=== PATIENT | male | born 1955 | race Caucasian/White ===

== ENCOUNTER → 2018-12-25 | Outpatient (CLI) | payer MEDICARE ==
--- NOTE | 2018-12-25 09:08 | CTL ---
EXAMINATION TYPE: CT Low Dose Lung DATE OF EXAM ORDERED: 12/25/2018 HISTORY: 63-year-old male Personal hx of tobacco use . Lung cancer screening CT DLP: [address] CTDI: 1.64 mGy Automated exposure control for dose reduction was used. SCREENING VISIT: Baseline COMPARISON: None TECHNIQUE: Low dose computed tomography scan was performed through the chest at 1 mm thick sections a nd reconstructed images in the coronal and sagittal plane. Additional coronal MIP reconstructions per formed. CT DIAGNOSTIC QUALITY: Satisfactory FINDINGS: Heart normal size without pericardial effusion. Coronary vessel calcifications are present. Aorta normal caliber with mild atherosclerotic arch calcifications and conventional arch vessel branc dewayne anatomy. No thoracic lymphadenopathy by CT size criteria. Mild bilateral gynecomastia. Mild centrilobular emphysema with biapical pleural-parenchymal scarring. Mild diffuse bronchial wall thickening. There is strandy bibasilar atelectasis or scarring right base and inferior lingula. 3 mm peripheral left lower lobe pulmonary nodule axial image 175. 5 mm right middle lobe pulmonary nodule, axial image 200. 5 mm right upper lobe pulmonary nodule, axial image 121. No consolidation or pleural effusion. Tiny hiatal hernia. Bilateral nonobstructive nephrolithiasis measuring up to 4 mm on either side. Bones: Dextroconvex curvature of the thoracic spine. IMPRESSION: 1. BI-RADS 2 - benign; a few scattered pulmonary nodules measuring up to 5 mm on baseline screening. 2. COPD with mild emphysema. 3. Tiny hiatal hernia and bilateral nephrolithiasis. RECOMMENDATION: 1. Continue annual low-dose lung cancer screening CT. 2. Smoking cessation. FOLLOW UP CT CHEST RECOMMENDATION: [address] LUNG RAD: Lung-Rad 2 Benign Appearance or Behavior
== END | disposition home or self-care (01) ==
LOC: RADCTMAIN 05:31
PROVIDERS: ATTEND Physician Assistant
DX: Z12.2 Encounter for screening for malignant neoplasm of respiratory organs (principal); J43.9 Emphysema, unspecified; F17.210 Nicotine dependence, cigarettes, uncomplicated

== ENCOUNTER → 2020-03-06 | Outpatient (CLI) | payer MEDICARE ==
--- NOTE | 2020-03-06 08:39 | US ---
EXAMINATION TYPE: US duplex aorta DATE OF EXAM: 03/06/2020 COMPARISON: NONE CLINICAL HISTORY: Z13.6 Encounter screening for cardiovascular disorders. EXAM MEASUREMENTS: Abdominal Aorta: Proximal: 2.4 x 2.4 cm Mid: 2.2 x 2.1 cm Distal: 1.7 x 1.6 cm Bifurcation: 1.0 cm 0.9 cm No evidence of AAA, mild atherosclerotic changes. Grayscale and color Doppler imaging performed IMPRESSION: No abdominal aortic aneurysm
== END | disposition home or self-care (01) ==
LOC: RADUSWWP 08:07
PROVIDERS: ATTEND Family Medicine
DX: Z13.6 Encounter for screening for cardiovascular disorders (principal)
CPT/HCPCS: 93979

== ENCOUNTER → 2020-06-01 | Outpatient (CLI) | payer MEDICARE ==
--- NOTE | 2020-06-01 13:10 | CTL ---
EXAMINATION TYPE: CT Low Dose Lung DATE OF EXAM ORDERED: 06/01/2020 HISTORY: 65-year-old male Personal history of tobacco use. Lung cancer screening CT DLP: [address] CTDI: 1.87 mGy Automated exposure control for dose reduction was used. SCREENING VISIT: 17 months after baseline screening COMPARISON: 12/25/2018 TECHNIQUE: Low dose computed tomography scan was performed through the chest at 1 mm thick sections a nd reconstructed in the sagittal and coronal plane. Additional coronal MIP reconstructions were gener ated. CT DIAGNOSTIC QUALITY: Satisfactory FINDINGS: Heart normal size with trace anterior pericardial fluid. Mild scattered three-vessel coronary calcifi cations are present. Aorta normal caliber with conventional arch vessel branching anatomy and mild atherosclerotic arch ca lcifications. Redemonstrated prominent biapical pleural parenchymal scarring. Mild centrilobular emphysema. Mild di ffuse bronchial wall thickening. Scattered pulmonary nodules, axial image 117, 170, and 193 measuring up to 5 mm remain unchanged. A 6 mm calcified granuloma medial basilar right lower lobe, axial image 263 is new but benign. Otherwise, no new pulmonary nodules are seen. Tiny hiatal hernia. Visualized upper abdomen redemonstrates left-sided nephrolithiasis measuring up t o 5 mm. Bones: No osseous destructive process. IMPRESSION: 1. LungRADS 2 - benign;. Evidence of prior granulomatous disease as well as stable. Pulmonary nodules measuring up to 5 mm. 2. COPD with mild emphysema. 3. Left-sided nephrolithiasis. RECOMMENDATION: 1. Continue annual low-dose lung cancer screening CT. 2. Smoking cessation. CT LUNG RAD AND CT CHEST RECOMMENDATION: Lung-Rad 2 Benign Appearance or Behavior: Continue annual sc reening with LDCT in 12 months.
== END | disposition home or self-care (01) ==
LOC: RADCTMAIN 11:58
PROVIDERS: ATTEND Nurse Practitioner Family
DX: Z12.2 Encounter for screening for malignant neoplasm of respiratory organs (principal); J43.9 Emphysema, unspecified; F17.210 Nicotine dependence, cigarettes, uncomplicated

== ENCOUNTER → 2020-12-22 | Outpatient (CLI) | payer MEDICARE ==
--- NOTE | 2020-12-23 13:37 | P.ARTDOP ---
Arterial Doppler LOWER EXTREMITY ARTERIAL DOPPLER: DATE OF SERVICE: 12/22/2020 Reason for study: Restless leg syndrome. Doppler waveforms: Multiphasic throughout bilaterally. However, the dorsalis pedis on the right could not be seen.. Pulse volume recording: []. Pressure gradients: None. Ankle-brachial indices: Greater than 1 bilaterally. Toe brachial indices: 0.84 on the right, 0.73 on the left Impression: Normal study except absence of a dorsalis pedis on the right which is unlikely to be of physiologic significance. Clinical correlation re commended.
== END | disposition home or self-care (01) ==
LOC: RADUSWWP 12:34
PROVIDERS: ATTEND Family Medicine
DX: I73.9 Peripheral vascular disease, unspecified (principal)
CPT/HCPCS: 93922

== ENCOUNTER 2024-11-26 10:56 | Inpatient (IN) | payer MEDICARE ==
[2024-11-26 12:18] LABS: Appearance,Urine Clear (Clear); Bilirubin,Urine Negative (Negative); Blood,Urine Negative (Negative); Color,Urine Colorless; Glucose,Urine (UA) Negative (Negative); Ketones,Urine Negative (Negative); Leukocyte Esterase,Urine Negative (Negative); Nitrite,Urine Negative (Negative); PH, Urine 5.5 (5.0-8.0); Protein,Urine Negative (Negative); Specific Gravity,Urine 1.005 (1.001-1.035); Urobilinogen,Urine <2.0 mg/dL (<2.0)
[2024-11-26 12:19] LABS: Basophils # (A) 0.05 10*3/uL (0.00-0.10); Basophils % (A) 0.4 %; Eosinophils # (A) 0.16 10*3/uL (0.04-0.35); Eosinophils % (A) 1.4 %; HCT 46.2 % (39.6-50.0); HGB 16.2 g/dL (13.0-17.0); Lymphocytes # (A) 3.25 10*3/uL (0.90-5.00); MCH 30.9 pg (27.0-32.0); MCHC 35.1 g/dL (32.0-37.0); MCV 88.2 fL (80.0-97.0); Mean Platelet Volume 9.3 fL (9.5-12.2); Monocytes # (A) 0.84 10*3/uL (0.20-1.00); Monocytes % (A) 7.2 %; Neutrophils # (A) 7.21 10*3/uL (1.80-7.70); Neutrophils % (A) 62.2 %; Platelet Count 298 10*3/uL (140-440); RBC 5.24 10*6/uL (4.40-5.60); RDW 11.9 % (11.5-14.5)
[2024-11-26 12:34] LABS: ALT 41 U/L (4-49); AST 42 U/L (17-59); African American GFR (CKD) 62 (>60 ml/min/1.73 sqM); Albumin 4.7 g/dL (3.5-5.0); Alkaline Phosphatase 92 U/L (38-126); Anion Gap 13 mmol/L; Blood Urea Nitrogen 18 mg/dL (9-20); Calcium 9.5 mg/dL (8.4-10.2); Carbon Dioxide 22 mmol/L (22-30); Chloride 103 mmol/L (98-107); Glucose 102 mg/dL (74-99); Magnesium 2.3 mg/dL (1.6-2.3); Non-African American GFR(CKD) 54 (>60 ml/min/1.73 sqM); Potassium 3.9 mmol/L (3.5-5.1); Sodium 138 mmol/L (137-145); Total Bilirubin 1.2 mg/dL (0.2-1.3); Total Protein 7.3 g/dL (6.3-8.2)
--- NOTE | 2024-11-26 13:00 | ED ---
General Adult HPI - General Source: patient, RN notes reviewed, old records reviewed Mode of arrival: ambulatory Limitations: no limitations <Noah Garrison - Last Filed: 11/26/24 15:23> <Wilbur Camargo - Last Filed: 11/26/24 18:00> - General Chief complaint: Psychiatric Symptoms Stated complaint: Mental Health Eval. Time Seen by Provider: 11/26/24 11:00 - History of Present Illness Initial comments: This is a 69-year-old male who presents to the emergency department stating that he is more depressed lately he has not been taking his medicine for 2 weeks. Patient states he has not been eating or going out of the house much. Patient states he is only getting 4 to 6 hours of sleep. Patient states he continues to smoke as well. Patient's family is concerned and want him to come to the emergency department to be evaluated. Patient denies any fever chills or cough or Patient denies chest pain patient has abdominal pain patient has nausea vomiting. Patient states that she is feeling depressed but is not suicidal or homicidal. (Noah Garrison) - Related Data Home Medications Medication Instructions Recorded Confirmed ARIPiprazole [Abilify] 15 mg PO HS 11/26/24 11/26/24 Albuterol Sulfate [Albuterol 2 puff INHALATION RT-Q6H PRN 11/26/24 11/26/24 Sulfate Hfa] Atorvastatin [Lipitor] 40 mg PO HS 11/26/24 11/26/24 Cetirizine HCl [Zyrtec] 10 mg PO DAILY 11/26/24 11/26/24 Pantoprazole Sodium [Protonix] 40 mg PO DAILY PRN 11/26/24 11/26/24 lamoTRIgine [LaMICtal] 200 mg PO DAILY 11/26/24 11/26/24 rOPINIRole HCL [Requip] 0.25 mg PO HS PRN 11/26/24 11/26/24 Allergies Allergy/AdvReac Type Severity Reaction Status Date / Time No Known Allergies Allergy Verified 11/26/24 15:20 Review of Systems ROS Other: All systems not noted in ROS Statement are negative. <Noah Garrison - Last Filed: 11/26/24 15:23> ROS Other: All systems not noted in ROS Statement are negative. <Wilbur Camargo - Last Filed: 11/26/24 18:00> ROS Statement: Those systems with pertinent positive or pertinent negative responses have been documented in the HPI. Past Medical History Past Medical History: COPD History of Any Multi-Drug Resistant Organisms: None Reported Past Surgical History: No Surgical Hx Reported Past Psychological History: No Psychological Hx Reported Smoking Status: Current every day smoker Past Alcohol Use History: None Reported Past Drug Use History: None Reported <Noah Garrison - Last Filed: 11/26/24 15:23> General Exam Limitations: no limitations <Noah Garrison - Last Filed: 11/26/24 15:23> - General Exam Comments Initial Comments: GENERAL: Patient is well-developed and well-nourished. Patient is nontoxic and well- hydrated and is in mild distress. ENT: Neck is soft and supple. No significant lymphadenopathy is noted. Oropharynx is clear. Moist mucous membranes. Neck has full range of motion without eliciting any pain. EYES: The sclera were anicteric and conjunctiva were pink and moist. Extraocular movements were intact and pupils were equal round and reactive to light. Eyelids were unremarkable. PULMONARY: Unlabored respirations. Good breath sounds bilaterally. No audible rales rhonchi or wheezing was noted. CARDIOVASCULAR: There is a regular rate and rhythm without any murmurs gallops or rubs. ABDOMEN: Soft and nontender with normal bowel sounds. SKIN: Skin is clear with no lesions or rashes and otherwise unremarkable. NEUROLOGIC: Patient is alert and oriented x3. Cranial nerves II through XII are grossly intact. Motor and sensory are also intact. Normal speech, volume and content. Symmetrical smile. MUSCULOSKELETAL: Normal extremities with adequate strength and full range of motion. No lower extremity swelling or edema. No calf tenderness. LYMPHATICS: No significant lymphadenopathy is noted PSYCHIATRIC: States he has not been sleeping good he does not go out of the house and he is just feeling severely depressed. Patient states he has not been taking any of his medicines for 2 weeks (Noah Garrison) Course Vital Signs 11/26/24 11/26/24 10:57 14:20 Temperature 97.6 F Pulse Rate 74 80 Respiratory 18 18 Rate Blood Pressure 131/80 122/70 O2 Sat by Pulse 94 L 95 Oximetry Medical Decision Making - Lab Data Result diagrams: 11/26/24 12:11 11/26/24 12:11 <Noah Garrison - Last Filed: 11/26/24 15:23> - Lab Data Result diagrams: 11/26/24 12:11 11/26/24 12:11 <Wilbur Camargo - Last Filed: 11/26/24 18:00> - Medical Decision Making Was pt. sent in by a medical professional or institution (, ADRY, RESPIRATORY THERAPIST ASSISTANT, urgent care, hospital, or custodial...) When possible be specific @ -[No] Did you speak to anyone other than the patient for history (EMS, parent, family, police, friend...)? What history was obtained from this source @ -[No] Did you review nursing and triage notes (agree or disagree)? Why? @ -[I reviewed and agree with nursing and triage notes] Were old charts reviewed (outside hosp., previous admission, EMS record, old EKG, old radiological studies, urgent care reports/EKG's, custodial records)? Report findings @ -[No old charts were reviewed] Differential Diagnosis? @ -Differential Mental Health Depression, anxiety, bipolar, psychosis, schizophrenia, borderline personality, situational depression, adjustment disorder, behavioral disorder, brain tumor, malingering, substance abuse, encephalopathy, medication reaction, dementia, hypothyroidism, degenerative neurologic disorder, lupus.... This is not meant to be all-inclusive list EKG interpreted by me (3pts min.). @ -[As above] X-rays interpreted by me (1pt min.). @ -[None done] CT interpreted by me (1pt min.). @ -[None done] U/S interpreted by me (1pt. min.). @ -[None done] What testing was considered but not performed or refused? (CT, X-rays, U/S, labs)? Why? @ -[None] What meds were considered but not given or refused? Why? @ -[None] Did you discuss the management of the patient with other professionals (professionals i.e. , ADRY, RESPIRATORY THERAPIST ASSISTANT, lab, RT, psych nurse, social media intern, co founder, teacher, strategic intelligence officer, block and case maker)? Give summary @ -EPS was evaluating the patient and at this point in time Dr. Camargo will take over care of this patient (Noah Garrison) Patient signed out to me pending results of EPS and mental health evaluation. Medically cleared by previous provider. EPS evaluated the patient, determined that he does not meet inpatient criteria for admission. Patient will be admitted to inpatient psychiatry in stable condition. Diagnosis/symptom? @ -Depression, suicidal ideation Acute, or Chronic, or Acute on Chronic? @ -Acute Uncomplicated (without systemic symptoms) or Complicated (systemic symptoms)? @ -Complicated Side effects of treatment? @ -None Exacerbation, Progression, or Severe Exacerbation] @ -No Poses a threat to life or bodily function? @ -Yes (Wilbur Camargo) - Lab Data Lab Results 11/26/24 11/26/24 11/26/24 Range/Units 12:00 12:11 12:11 WBC 11.60 H (4.50-10.00) 10*3/uL RBC 5.24 (4.40-5.60) 10*6/uL Hgb 16.2 (13.0-17.0) g/dL Hct 46.2 (39.6-50.0) % MCV 88.2 (80.0-97.0) fL MCH 30.9 (27.0-32.0) pg MCHC 35.1 (32.0-37.0) g/dL Plt Count 298 (140-440) 10*3/uL MPV 9.3 L (9.5-12.2) fL Immature Gran % (Auto) 0.8 % Neutrophils % 62.2 % Lymphocytes % 28.0 % Monocytes % 7.2 % Eosinophils % 1.4 % Basophils % 0.4 % Immature Gran # 0.09 H (0.00-0.04) 10*3/uL Neutrophils # 7.21 (1.80-7.70) 10*3/uL Lymphocytes # 3.25 (0.90-5.00) 10*3/uL Monocytes # 0.84 (0.20-1.00) 10*3/uL Eosinophils # 0.16 (0.04-0.35) 10*3/uL Basophils # 0.05 (0.00-0.10) 10*3/uL Sodium 138 (137-145) mmol/L Potassium 3.9 (3.5-5.1) mmol/L Chloride 103 (98-107) mmol/L Carbon Dioxide 22 (22-30) mmol/L Anion Gap 13 mmol/L BUN 18 (9-20) mg/dL Creatinine 1.35 H (0.66-1.25) mg/dL Est GFR (CKD-EPI)AfAm 62 (>60 ml/min/1.73 sqM) Est GFR (CKD-EPI)NonAf 54 (>60 ml/min/1.73 sqM) Glucose 102 H (74-99) mg/dL Calcium 9.5 (8.4-10.2) mg/dL Magnesium 2.3 (1.6-2.3) mg/dL Total Bilirubin 1.2 (0.2-1.3) mg/dL AST 42 (17-59) U/L ALT 41 (4-49) U/L Alkaline Phosphatase 92 (38-126) U/L Total Protein 7.3 (6.3-8.2) g/dL Albumin 4.7 (3.5-5.0) g/dL Urine Color Colorless Urine Appearance Clear (Clear) Urine pH 5.5 (5.0-8.0) Ur Specific [place] 1.005 (1.001-1.035) Urine Protein Negative (Negative) Urine Glucose (UA) Negative (Negative) Urine Ketones Negative (Negative) Urine Blood Negative (Negative) Urine Nitrite Negative (Negative) Urine Bilirubin Negative (Negative) Urine Urobilinogen <2.0 (<2.0) mg/dL Ur Leukocyte Esterase Negative (Negative) Disposition <Noah Garrison - Last Filed: 11/26/24 15:23> <Wilbur Camargo - Last Filed: 11/26/24 18:00> Clinical Impression: Depression, Suicidal ideation Disposition: TRANSFER TO PSYCH HOSP/UNIT Condition: Stable Referrals: Tong Sorensen MD [REFERRING] - 1-2 days
--- NOTE | 2024-11-26 13:18 | XR ---
EXAMINATION TYPE: XR chest 2V DATE OF EXAM: 11/26/2024 1:10 PM COMPARISON: None. CLINICAL INDICATION: Male, 69 years old with history of Difficulty breathing , TECHNIQUE: XR chest 2V view(s) obtained. FINDINGS: The heart size is normal. The pulmonary vasculature is normal. The lungs are clear. IMPRESSION: 1. No acute pulmonary process. [facility], , 11/26/2024 1:16 PM
[2024-11-26] MEDS ORDERED: MAG HYDROX/AL HYDROX/SIMETH 355 ML BOTTLE PO PRN (21:51)
[2024-11-26] MEDS ORDERED: haloperidoL 5 MG TAB PO PRN (21:51)
[2024-11-26] MEDS ORDERED: IBUPROFEN 600 MG TAB PO PRN (21:51)
[2024-11-26] MEDS ORDERED: MAGNESIUM HYDROXIDE 2,400 MG/30 ML CUP PO PRN (21:51)
[2024-11-26] MEDS ORDERED: HALOPERIDOL LACTATE 5 MG/ML 1 ML VIAL IM PRN (21:51)
[2024-11-26] MEDS ORDERED: ACETAMINOPHEN TAB 325 MG TAB PO PRN (21:51)
[2024-11-26] MEDS ORDERED: LORazepam 2 MG/ML INJ IM PRN (21:51)
[2024-11-26] MEDS ORDERED: ALBUTEROL INHALER 60 PUFF/8 GM INHALER (MHU) INHALATION PRN (21:54)
[2024-11-26] MEDS: ARIPiprazole 15 MG TAB PO SCH (22:43)
[2024-11-26] MEDS: ATORVASTATIN 40 MG TAB PO SCH (22:43)
[2024-11-27 08:25] LABS: Urine Alcohol Negative (Negative)
[2024-11-27 08:27] LABS: Urine Barbiturate Negative (Negative); Urine Cocaine Negative (Negative); Urine Methadone Negative (Negative); Urine Opiates Negative (Negative); Urine Phencyclidine Negative (Negative)
[2024-11-27] MEDS: lamoTRIgine 100 MG TAB PO SCH (08:28)
[2024-11-27] MEDS: NICOTINE 14MG/24HR PATCH TRANSDERM SCH (08:28)
[2024-11-27] MEDS: LORATADINE 10 MG TAB PO SCH (08:28)
[2024-11-27] MEDS: PANTOPRAZOLE 40 MG TABLET PO SCH (08:28)
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
--- NOTE | 2024-11-27 21:21 | CONS ---
CONSULTATION CHIEF COMPLAINT: Depression with suicidal thoughts. HISTORY OF PRESENT ILLNESS: This gentleman presented to the emergency room with depression and thoughts of killing himself. He has had been in fairly good health. He has had psychiatric issues and is on psychiatric medication. REVIEW OF SYSTEMS: Unremarkable. Past Medical History, Family History, Personal and Social History reveal he is not allergic to any medication. 1. He takes Zyrtec for allergies. 2. He is on pantoprazole 40 mg once a day. 3. Atorvastatin 40 mg once a day. 4. Ropinirole 0.25 h.s. 5. Albuterol inhaler. 6. Lamotrigine 200 mg once a day. 7. Aripiprazole 15 mg h.s. The remainder of his history is unremarkable. He does smoke vape. PHYSICAL EXAMINATION: VITAL SIGNS: Blood pressure 150/90, pulse 59, and respirations 16. He is afebrile. GENERAL: Appeared to be in no acute distress. Affect was depressed. HEAD, EARS, EYES, NOSE, MOUTH, AND THROAT: Normal. NECK: Veins not distended. CHEST: Clear. CARDIAC: Normal. ABDOMEN: Soft, nontender. IMPRESSION: 1. Major depression. 2. Suicidal thoughts. 3. History of gastroesophageal reflux disease. 4. Chronic obstructive pulmonary disease. RECOMMENDATION: None. Thank you respectfully. MMODL / IJN: [id number] /
[2024-11-28] MEDS: lamoTRIgine 25 MG TAB PO SCH (08:10)
--- NOTE | 2024-11-28 13:26 | P.PN ---
Progress Note - Text Progress Note Date: 11/28/24 Interval History: Patient was seen in bed and was directable and agreeable to speak with speech writer in the office. He states feeling pretty depressed today, no significant improvements. He reports poor sleep overnight with poor appetite that resulted in a 5 pound weight loss recently. He has been tending to his ADLs, not attending groups and mostly social. He continues to exhibit some confusion. At this time patient denies any suicidal or homicidal ideations, intent or plan. Patient denies any auditory, visual hallucinations and denies any paranoia or delusions. Patient denies any side effects from the medications and has been compliant with meds. Mental Status Exam: General Appearance: Patient appears to be stated age is alert, directable, and cooperative. Behavior: Patient is calmly seated without any agitated behavior. Speech: Patient's speech is fluent and nonpressured. Mood/Affect: Mood is improving mildly, affect is congruent and constricted. Suicidality/Homicidality: Patient denies having any suicidal or homicidal ideation intent or plan. Perceptions: Patient denies any visual hallucinations and denies any auditory hallucinations Though content/process: There is no evidence of any delusional thought content and thought process is linear and goal-directed. Memory and concentration: AOX3, grossly intact for the purposes of this session Judgment and insight: Improving mildly Assessment Major depressive disorder, recurrent, moderate Rule out bipolar disorder History of PTSD Nicotine dependence Plan: -Patient continues to meet criteria for inpatient psychiatric admission for symptom stabilization and safety. Patient has signed adult voluntary form and medication consent and was placed in patient's chart. -Medications: Start Remeron 7.5 mg at bedtime for mood/sleep/appetite, continue Lamictal 25 mg daily for mood stabilization, Abilify 15 mg at bedtime for mood -When necessary Ativan and Haldol for agitation/aggression. -Labs: A1c WNL, TSH elevated however free T4 was WNL -NRT - nicotine patch -SW on board for discharge planning. Encouraged the patient to participate in milieu.
[2024-11-28] MEDS: MIRTAZAPINE 15 MG TAB PO SCH (21:02)
[2024-11-29] MEDS: LORazepam 1 MG TAB PO PRN (08:28)
--- NOTE | 2024-11-29 09:54 | P.PN ---
Progress Note - Text Progress Note Date: 11/29/24 Interval History: Patient was seen laying in bed and was directable and agreeable to speak with junior copywriter in the room. He continues to be isolative to his room, not attending groups. Goal was set today to attend at least one group. He reports feeling very depressed today, rating this 8/10. He reports moderate anxiety, taking PRN ativan. He continues to report poor sleep however is seen laying in bed throughout the day. He reports suicidal ideations, states that these come and go, no plan or intent. At this time patient denies any homicidal ideations, intent or plan. Patient denies any auditory, visual hallucinations and denies any paranoia or delusions. Patient denies any side effects from the medications and has been compliant with meds. Mental Status Exam: General Appearance: Patient appears to be stated age is alert, directable, and cooperative. Behavior: Patient is calmly laying without any agitated behavior. Speech: Patient's speech is fluent and nonpressured. Mood/Affect: Mood is improving mildly, affect is congruent and constricted. Suicidality/Homicidality: Patient denies having any homicidal ideation intent or plan. Patient reports suicidal ideations Perceptions: Patient denies any visual hallucinations and denies any auditory hallucinations Though content/process: There is no evidence of any delusional thought content and thought process is linear and logical. Memory and concentration: AOX3, grossly intact for the purposes of this session Judgment and insight: Improving mildly Assessment Major depressive disorder, recurrent, moderate rule out bipolar disorder History of PTSD Nicotine dependence Plan: -Patient continues to meet criteria for inpatient psychiatric admission for symptom stabilization and safety. Patient has signed adult voluntary form and medication consent and was placed in patient's chart. -Medications: Continue remeron 7.5 mg HS for mood/sleep/appetite, lamictal 25 mg daily for mood stabilization, abilify 15 mg HS for mood -When necessary Ativan and Haldol for agitation/aggression. -Labs: a1c wnl, tsh elevated however free T4 wnl -NRT - nicotine patch -SW on board for discharge planning. Encouraged the patient to participate in milieu.
--- NOTE | 2024-11-30 15:17 | P.PN ---
Subjective Progress Note Date: 11/30/24 Principal diagnosis: Major depression recurrent Patient was seen walking in the halls and was directable and agreeable to speak with press writer in the room. He seemed confused as to who I might be even after I introduced myself. He continues to be isolative to his room, not attending groups. He reports feeling very depressed today, he admits that his depression does fluctuate so we are giving him lamotrigine to try to help with that. Rating this depression at 8/10. He reports moderate anxiety, taking PRN ativan. He reports that he slept better last night. And that his appetite is good without being in excess. He reports suicidal ideations, states that these come and go, no plan or intent. At this time patient denies any homicidal ideations, intent or plan. Patient denies any auditory, visual hallucinations and denies any paranoia or delusions. Patient denies any side effects from the medications and has been compliant with meds. He says he is tolerating the medications no med side effects does not want to change them at this point. Mental Status Exam: General Appearance: Patient appears to be stated age is alert, directable, and cooperative. Behavior: Patient is calmly laying without any agitated behavior. Speech: Patient's speech is fluent and nonpressured. Mood/Affect: Mood is improving mildly, affect is congruent and exceptionally flat no expression of feeling at all in his face Suicidality/Homicidality: Patient denies having any homicidal ideation intent or plan. Patient reports suicidal ideations Perceptions: Patient denies any visual hallucinations and denies any auditory hallucinations Though content/process: There is no evidence of any delusional thought content and thought process is linear and logical. Memory and concentration: AOX3, grossly intact for the purposes of this session Judgment and insight: Improving mildly Assessment Major depressive disorder, recurrent, moderate rule out bipolar disorder History of PTSD Nicotine dependence Plan: -Patient continues to meet criteria for inpatient psychiatric admission for symptom stabilization and safety. Patient has signed adult voluntary form and medication consent and was placed in patient's chart. -Medications: Continue remeron 7.5 mg HS for mood/sleep/appetite, lamictal 25 mg daily for mood stabilization, abilify 15 mg HS for mood -When necessary Ativan and Haldol for agitation/aggression. -Labs: a1c wnl, tsh elevated however free T4 wnl -NRT - nicotine patch -SW on board for discharge planning. Encouraged the patient to participate in milieu. Objective - Vital Signs Vital signs: Vital Signs Temp 97.7 F 11/30/24 08:37 Pulse 85 11/30/24 08:37 Resp 16 11/30/24 08:37 BP 117/82 11/30/24 08:37 Pulse Ox 98 11/30/24 08:37 FiO2 - Labs CBC & Chem 7: 11/26/24 12:11 11/26/24 12:11
--- NOTE | 2024-12-01 08:13 | P.PN ---
Subjective Progress Note Date: 12/01/24 Principal diagnosis: Major depression recurrent Patient was seen walking in the halls and was directable and agreeable to speak with fha underwriter in the room. He seemed less confused today. He is staying out of his room more. He reports feeling less depressed today, he admits that his depression does fluctuate so we are giving him lamotrigine to try to help with that. Rating his depression at 6/10. He reports moderate anxiety, taking PRN ativan. He reports that he slept well last night. And that his appetite is good without being in excess. He reports suicidal ideations, states that these come and go, no plan or intent. At this time patient denies any homicidal ideations, intent or plan. Patient denies any auditory, visual hallucinations and denies any paranoia or delusions. Patient denies any side effects from the medications and has been compliant with meds. He says he is tolerating the medications no med side effects does not want to change them at this point. Mental Status Exam: Cooperative and seems less confused today General Appearance: Patient appears to be stated age is alert, directable, and cooperative. Behavior: Patient is calmly laying without any agitated behavior. Speech: Patient's speech is fluent and nonpressured. Mood/Affect: Mood is improving mildly, affect is congruent and exceptionally flat no expression of feeling at all in his face Suicidality/Homicidality: Patient denies having any homicidal ideation intent or plan. Patient reports suicidal ideations Perceptions: Patient denies any visual hallucinations and denies any auditory hallucinations Though content/process: There is no evidence of any delusional thought content and thought process is linear and logical. Memory and concentration: AOX3, grossly intact for the purposes of this session Judgment and insight: Improving mildly Assessment Major depressive disorder, recurrent, moderate rule out bipolar disorder History of PTSD Nicotine dependence Plan: Seems to be tolerating the medicines starting to get some benefit probably from the Abilify and he understands that it will be a while till the lamotrigine is that high enough dose to help -Patient continues to meet criteria for inpatient psychiatric admission for symptom stabilization and safety. Patient has signed adult voluntary form and medication consent and was placed in patient's chart. -Medications: Continue remeron 7.5 mg HS for mood/sleep/appetite, lamictal 25 mg daily for mood stabilization, abilify 15 mg HS for mood -When necessary Ativan and Haldol for agitation/aggression. -Labs: a1c wnl, tsh elevated however free T4 wnl -NRT - nicotine patch -SW on board for discharge planning. Encouraged the patient to participate in milieu. Objective - Vital Signs Vital signs: Vital Signs Temp 97.7 F 11/30/24 21:00 Pulse 63 11/30/24 21:00 Resp 17 11/30/24 21:00 BP 111/72 11/30/24 21:00 Pulse Ox 98 11/30/24 21:00 FiO2 - Labs CBC & Chem 7: 11/26/24 12:11 11/26/24 12:11
[2024-12-02 11:17] VITALS: BP 124/67; PULSE 89; RESP 16; TEMP 97.6
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
== END 2024-12-02 15:46 | disposition home or self-care (01) | DRG 885 ==
LOC: EC 10:56 → 3MHU 21:46
PROVIDERS: ADMIT Psychiatry & Neurology Psychiatry; ATTEND Psychiatry & Neurology Psychiatry
DX: F33.1 Major depressive disorder, recurrent, moderate (principal); Z91.148 Patient's other noncompliance with medication regimen for other reason; R45.851 Suicidal ideations; J44.9 Chronic obstructive pulmonary disease, unspecified; N19 Unspecified kidney failure; F17.210 Nicotine dependence, cigarettes, uncomplicated; F43.10 Post-traumatic stress disorder, unspecified; T50.916A Underdosing of multiple unspecified drugs, medicaments and biological substances, initial encounter; F41.9 Anxiety disorder, unspecified; G47.10 Hypersomnia, unspecified; K21.9 Gastro-esophageal reflux disease without esophagitis; Z79.899 Other long term (current) drug therapy
CPT/HCPCS: 36415; 71046; 80053; 80306; 81003; 82075; 83036; 83735; 84439; 84443; 85025; 87635; 99285